=== PATIENT | female | born 1980 | race Caucasian/White ===

== ENCOUNTER 2016-11-02 06:01 | Observation (INO) | payer BC ==
[2016-11-01 11:15] LABS: HEMATOCRIT 37.1 % (36.0-48.0); HEMOGLOBIN 12.7 g/dL (12.0-16.0)
--- NOTE | ~2016-11-02 | OP ---
Record Of Operation [facility] [address] [place]. [address] NAME: SAI BOSE : 80 STATUS : DIS Yinka PAT#: [id number] AGE: 35 ADM/REG DATE : 11/02/16 MR#: [id number] REPORT SERV DATE: 11/03/16 DICTATED BY: SG BOBBY DATE: 11/03/16 REPORT STATUS : Draft TRANSCRIBED BY: TRAE DATE: 11/03/16 DATE OF PROCEDURE: 11/02/2016 PREOPERATIVE DIAGNOSIS: History of breast cancer, acquired absence of left breast. POSTOPERATIVE DIAGNOSE: History of breast cancer, acquired absence of left breast. PROCEDURE: Left breast reconstruction with [employer] tissue dining room attendant cafeteria, 650 mL filled to 200 mL, and placement of acellular dermal matrix 10 x 21 cm. RESIDENT: Erwin Schmidt. ANESTHESIA: General endotracheal. COMPLICATIONS: None. INDICATION FOR THE PROCEDURE: The patient is a 35-year-old female with left breast cancer, who has undergone a left mastectomy. She is appropriate for reconstruction of left the breast with tissue dining room attendant cafeteria and AlloDerm. DESCRIPTION OF PROCEDURE: The patient on the operating table having undergone a left mastectomy, evaluation reveals a left mastectomy deep wound through a circumvertical incision. The flaps are good, thickness, and viability. The wound was irrigated with saline. The pectoralis major muscle was elevated from the chest wall and released from its inferior attachments. A 10 x 21 cm AlloDerm contoured was placed into the wound and sutured to the chest wall to recreate the inframammary and lateral breast fold. 650 mL tissue dining room attendant cafeteria was placed, filled to 200 mL. The AlloDerm was sutured to the pectoralis muscle to provide complete coverage. Two drains were placed. The deep fascia was sutured down to the AlloDerm and the skin was closed in layers with Monocryl sutures. The drains were placed to bulb suction. The patient tolerated the procedure well. She was extubated and transferred to the recovery area. She will remain in the hospital for 23-hour observation. REJI/TRAE Sg Bobby M.D. / [id number] CC: Dillon Feliciano M.D. NO PCP
--- NOTE | ~2016-11-02 | OP ---
Record Of Operation [facility] [address] [place]. [address] NAME: SAI BOSE : 80 STATUS : ADM Yinka PAT#: [id number] AGE: 35 ADM/REG DATE : 11/02/16 MR#: [id number] REPORT SERV DATE: 11/03/16 DICTATED BY: DILLON FELICIANO DATE: 11/03/16 REPORT STATUS : Draft TRANSCRIBED BY: MODFabian DATE: 11/03/16 DATE OF PROCEDURE: 11/02/2016 PREOPERATIVE DIAGNOSIS: Left breast cancer. POSTOP DIAGNOSIS: Left breast cancer. OPERATION PERFORMED: 1. Left total mastectomy. 2. Sublette node biopsy. ANESTHESIA: General. ESTIMATED BLOOD LOSS: Less than 100 mL. IV FLUIDS: Adequate. INDICATION FOR PROCEDURE: Ms. Bose is a 35-year-old white female, who has developed multifocal left breast cancer. After full discussion of options, she has opted for a left mastectomy and sentinel node biopsy with reconstruction. SPECIMENS: 1. Left breast suture placed and axillary tail for orientation. 2. Sublette node x2, target counts 2834 and 1358 respectively. DESCRIPTION OF OPERATION: After appropriate sedation, the patient was prepped and draped in proper sterile fashion. An incision was made around the nipple-areolar complex and then brought inferiorly in a lollipop shape. Subcutaneous flaps were developed circumferentially, superiorly to the level of the clavicle, medial to the level of sternum, inferiorly to the inframammary fold, and laterally to the level of latissimus. The breast was then taken off the chest wall and taken down to the axillary tail. It was then transected at the axillary tail and sutures were placed in the axillary tail for orientation. A Neoprobe was placed into the left axilla. A hot node was encountered and it was dissected out using a Harmonic scalpel. It was placed in the back table and it was noted to have a target count of 2834. Probe was then placed back in the left axilla. A second node was encountered and it was dissected out using a Harmonic scalpel and it was noted to have a target count of 1358. We then palpated the left axilla. There were no clinically positive nodes. We placed the probe back in the left axilla and there was no significant uptake. At this point, we evaluated our flaps, which were uniform and viable. The remainder of the case was turned over to Dr. Malcolm Bobby for completion of the reconstruction. JOSIAH/TRAE Record Of [place] [address] [place]. [address] NAME: SAI BOSE : 80 STATUS : ADM Yinka PAT#: [id number] AGE: 35 ADM/REG DATE : 11/02/16 MR#: [id number] REPORT SERV DATE: 11/03/16 DICTATED BY: DILLON FELICIANO DATE: 11/03/16 REPORT STATUS : Draft TRANSCRIBED BY: TRAE DATE: 11/03/16 Dillon Feliciano M.D. / [id number] CC: Dillon Feliciano M.D. NO PCP
[~2016-11-02 06:01] MED LIST: IBU-200200 MG PO; NEUR100 PO; NORCO1 TA2 PO; ULTRAM50 PO
[2016-11-03] MEDS ORDERED: K500 PO (14:36)
[2016-11-03] MEDS ORDERED: PCET PO (14:42)
== END 2016-11-03 15:40 | disposition home or self-care (01) ==
LOC: SDC 06:01 → 5SO 14:06
PROVIDERS: Specialist; Surgery Plastic and Reconstructive Surgery
PROC: 0HHU0NZ Insertion of Tissue Expander into Left Breast, Open Approach (ICD-10-PCS; 2016-11-02)
PROC: 0HUU0KZ Supplement Left Breast with Nonautologous Tissue Substitute, Open Approach (ICD-10-PCS; 2016-11-02)
PROC: 0HTU0ZZ Resection of Left Breast, Open Approach (ICD-10-PCS; principal; 2016-11-02 07:15)
PROC: 07B60ZX Excision of Left Axillary Lymphatic, Open Approach, Diagnostic (ICD-10-PCS; 2016-11-02 07:15)
DX: C50.612 Malignant neoplasm of axillary tail of left female breast (principal); J45.909 Unspecified asthma, uncomplicated; G43.909 Migraine, unspecified, not intractable, without status migrainosus; Z88.1 Allergy status to other antibiotic agents; Z91.040 Latex allergy status
CPT/HCPCS: 78195; 85014; 85018; 88305; 88307; 88342; 96374; 96375; 96376; A9270-GY; A9541; C1769; C1789; G0378; J0690; J1170; J1885; J2250; J2370; J2405; J2550; J2710; J3010; Q4116

== ENCOUNTER 2016-11-15 21:27 | Emergency (ER) | payer BC ==
[2016-11-15 17:51] LABS: BASOPHILS 0.5 %; BASOPHILS ABSOLUTE 0.03 10/3/uL (0.0-0.16); EOSINOPHILS 4.8 %; EOSINOPHILS ABSOLUTE 0.29 10/3/uL (0.0-0.53); HEMATOCRIT 35.8 % (36.0-48.0); HEMOGLOBIN 12.2 g/dL (12.0-16.0); IMMATURE GRANULOCYTES 0.5 %; IMMATURE GRANULOCYTES ABSOLUTE 0.03 10/3/uL (0.0-0.11); LYMPHOCYTES 25.4 %; LYMPHOCYTES ABSOLUTE 1.52 10/3/uL (0.67-4.30); MEAN CORPUS HGB CONC 34.1 g/dL (32.0-36.0); MEAN CORPUSCULAR HEMOGLOB 32.2 pg (26.0-34.0); MEAN CORPUSCULAR VOLUME 94.5 fL (80-100); MEAN PLATELET VOLUME 10.1 fL (9.2-13.0); MONOCYTES 7.2 %; MONOCYTES ABSOLUTE 0.43 10/3/uL (0.21-1.20); NEUTROPHILS 61.6 %; NEUTROPHILS ABSOLUTE 3.69 10/3/uL (2.02-8.40); PLATELET COUNT 260 10/3/uL (150-400); RBC DISTRIBUTION WIDTH 12.6 % (12.0-16.0); RED CELL COUNT 3.79 10/6/uL (4.0-5.6)
[2016-11-15 17:52] LABS: MANUAL DIFF NO %
[2016-11-15 17:58] LABS: INTERNATIONAL NORMAL RATI 1.1 UNITS (-); PARTIAL THROMBO TIME 25.5 SEC (22.5-37.2); PROTIME (NOT ORD) 13.6 SEC (12.0-14.5)
[2016-11-15 18:08] LABS: BUN (BLOOD UREA NITROGEN) 13 MG/DL (6-23); CALCIUM, SERUM 8.8 MG/DL (8.5-10.4); CHEST PAIN PROFILE TAT 0 Hrs 21 Mins; CHLORIDE, SERUM 106 MMOL/L (96-112); CO2 (CARBON DIOXIDE) 28 MMOL/L (24-34); CREATININE 0.72 MG/DL (0.55-1.02); GFR AFRICAN AMERICAN 126 ML/MIN (>=60); GFR NON AFRICAN AMERICAN 109 ML/MIN (>=60); GLUCOSE, SERUM 100 MG/DL (60-99); POTASSIUM, SERUM 4.1 MMOL/L (3.5-5.3); SODIUM, SERUM 141 MMOL/L (135-148); TROPONIN I <0.02 NG/ML (<0.05)
[2016-11-15 21:04] LABS: ASCORBIC ACID (UR NOT ORDER) NEG (NEG); BILIRUBIN, URINE NEGATIVE (NEG); ER URINALYSIS TAT 0 Hrs 10 Mins; KETONE, URINE NEGATIVE (NEG); LEUKOCYTE ESTERASE(NOT OR NEG (NEG); NITRITE (URINE) NEG (NEG); WBC (NOT ORDERED) (RFLEX) < 1 (0-5)
[~2016-11-15 21:27] MED LIST changes: +K500 PO; +PCET PO
== END 2016-11-16 00:17 | disposition home or self-care (01) ==
LOC: ER 21:27
PROVIDERS: Emergency Medicine
DX: R07.89 Other chest pain (principal); Z91.040 Latex allergy status; Z88.1 Allergy status to other antibiotic agents; Z79.899 Other long term (current) drug therapy
CPT/HCPCS: 71020; 71275; 80048; 81001; 83735; 83880; 84484; 85025; 85610; 85730; 93005; 96374; 99285; A9270-GY; J2405; Q9967

== ENCOUNTER 2016-11-21 07:42 | Day surgery (SDC) | payer BC, OTHER ==
--- NOTE | ~2016-11-21 | OP ---
Record Of Operation [facility] [address] [place]. [address] NAME: SAI BOSE : 80 STATUS : REG [facility] PAT#: [id number] AGE: 35 ADM/REG DATE : 11/21/16 MR#: [id number] REPORT SERV DATE: 11/21/16 DICTATED BY: DILLON FELICIANO DATE: 11/21/16 REPORT STATUS : Draft TRANSCRIBED BY: MODL DATE: 11/21/16 DATE OF PROCEDURE: 11/21/2016 PREOPERATIVE DIAGNOSIS: Left breast cancer. POSTOPERATIVE DIAGNOSIS: Left breast cancer. OPERATION PERFORMED: Right internal jugular Port-A-Cath placement under ultrasound and fluoroscopic guidance. SURGEON: Dillon Feliciano M.D. ANESTHESIA: General. ESTIMATED BLOOD LOSS: Less than 20 mL. IV FLUIDS: Adequate. INDICATION FOR PROCEDURE: Ms Bose is a very pleasant 35-year-old white female, who recently underwent a mastectomy. She has been offered chemotherapy for risk reduction. She is brought to the operating room today for Port-A-Cath placement for IV access. DESCRIPTION OF OPERATION: After appropriate sedation, the patient was prepped and draped in proper sterile fashion. Ultrasound probe was placed over the right neck. She had a patent and pliable right internal jugular vein. Right neck and right chest were infiltrated with local anesthesia. The right internal jugular vein was cannulated using a 14-gauge needle under ultrasound guidance. A guidewire was fed under fluoroscopic guidance just above the right heart. A transverse incision was made over the right chest wall. Subcutaneous tissues were incised down to pectoralis fascia. Pocket was bluntly dissected. Introducer sheath was placed over the guidewire. The catheter was then fed through the introducer sheath with the tip being just above the right heart. The catheter was tunneled subcutaneously to the port pocket and secured to the port. Port was secured to the chest wall using 3-0 Vicryl suture. The port was flushed and aspirated, flushed and aspirated easily. The skin was closed using interrupted 3-0 Vicryl suture. Steri-Strips and dressings were then placed. The patient was taken to the recovery room in satisfactory condition. Chest x-ray was obtained. JOSIAH/TRAE Dillon Feliciano M.D. / [id number] Record Of [place] [address] [place]. [address] NAME: SAI BOSE : 80 STATUS : REG [facility] PAT#: [id number] AGE: 35 ADM/REG DATE : 11/21/16 MR#: [id number] REPORT SERV DATE: 11/21/16 DICTATED BY: DILLON FELICIANO DATE: 11/21/16 REPORT STATUS : Draft TRANSCRIBED BY: MODL DATE: 11/21/16 CC: Dillon Feliciano M.D.
== END 2016-11-21 17:19 | disposition home or self-care (01) ==
LOC: SDC 07:42
PROVIDERS: Specialist
PROC: 0JHD0XZ Insertion of Tunneled Vascular Access Device into Right Upper Arm Subcutaneous Tissue and Fascia, Open Approach (ICD-10-PCS; principal; 2016-11-21 09:30)
DX: C50.912 Malignant neoplasm of unspecified site of left female breast (principal); J45.909 Unspecified asthma, uncomplicated; Z91.040 Latex allergy status; Z88.8 Allergy status to other drugs, medicaments and biological substances; Z90.710 Acquired absence of both cervix and uterus; Z90.12 Acquired absence of left breast and nipple; G43.909 Migraine, unspecified, not intractable, without status migrainosus; Z90.49 Acquired absence of other specified parts of digestive tract; D64.9 Anemia, unspecified
CPT/HCPCS: 71010; 77001; A9270-GY; C1788; J0690; J2250; J3010

== ENCOUNTER 2016-12-20 02:14 | Emergency (ER) | payer BC ==
[2016-12-20 02:36] LABS: BASOPHILS 2.4 %; BASOPHILS ABSOLUTE 0.06 10/3/uL (0.0-0.16); EOSINOPHILS 0.4 %; EOSINOPHILS ABSOLUTE 0.01 10/3/uL (0.0-0.53); IMMATURE GRANULOCYTES 0.8 %; LYMPHOCYTES 30.9 %; LYMPHOCYTES ABSOLUTE 0.76 10/3/uL (0.67-4.30); MEAN CORPUSCULAR HEMOGLOB 31.8 pg (26.0-34.0); MEAN CORPUSCULAR VOLUME 93.6 fL (80-100); MEAN PLATELET VOLUME 10.6 fL (9.2-13.0); MONOCYTES 20.3 %; NEUTROPHILS 45.2 %; NEUTROPHILS ABSOLUTE 1.11 10/3/uL (2.02-8.40); RBC DISTRIBUTION WIDTH 12.1 % (12.0-16.0); RED CELL COUNT 3.14 10/6/uL (4.0-5.6)
[2016-12-20 02:37] LABS: HEMATOCRIT 29.4 % (36.0-48.0); IMMATURE GRANULOCYTES ABSOLUTE 0.02 10/3/uL (0.0-0.11); MANUAL DIFF NO %; PLATELET COUNT 144 10/3/uL (150-400); WHITE BLOOD CELLS 2.5 10/3/uL (4.5-10.5)
[2016-12-20 02:46] LABS: PARTIAL THROMBO TIME 25.4 SEC (22.5-37.2); PROTIME (NOT ORD) 13.2 SEC (12.0-14.5)
[2016-12-20 02:56] LABS: BAND NEUTROPHILS 2 %; BASOPHILS 2 %; BASOPHILS ABSOLUTE (CALC) 0.05 10/3/uL (0.0-0.16); BUN (BLOOD UREA NITROGEN) 8 MG/DL (6-23); CALCIUM, SERUM 8.6 MG/DL (8.5-10.4); CHEST PAIN PROFILE TAT 0 Hrs 25 Mins; CHLORIDE, SERUM 104 MMOL/L (96-112); CO2 (CARBON DIOXIDE) 28 MMOL/L (24-34); CREATININE 0.72 MG/DL (0.55-1.02); ER DIFF TAT 0 Hrs 25 Mins; GFR AFRICAN AMERICAN 125 ML/MIN (>=60); GFR NON AFRICAN AMERICAN 108 ML/MIN (>=60); GLUCOSE, SERUM 99 MG/DL (60-99); LYMPHOCYTES 36 %; MONOCYTES 14 %; MONOCYTES ABSOLUTE (CALC) 0.35 10/3/uL (0.21-1.20); PLATELET ESTIMATE SLT DEC (ADEQUATE); POTASSIUM, SERUM 3.6 MMOL/L (3.5-5.3); RBC MORPHOLOGY NORM (NORMAL); SEGMENTED NEUTROPHIL (0) 46 %; SODIUM, SERUM 139 MMOL/L (135-148); TOTAL NUCLEATED CELLS 100; TROPONIN I <0.02 NG/ML (<0.05)
== END 2016-12-20 04:36 | disposition home or self-care (01) ==
LOC: ER 02:14
PROVIDERS: Specialist
DX: S20.212A Contusion of left front wall of thorax, initial encounter (principal); R55 Syncope and collapse; C50.912 Malignant neoplasm of unspecified site of left female breast; Z88.1 Allergy status to other antibiotic agents; Z91.040 Latex allergy status; Z79.891 Long term (current) use of opiate analgesic; W19.XXXA Unspecified fall, initial encounter
CPT/HCPCS: 71010; 80048; 83735; 84484; 85025; 85610; 85730; 93005; 96374; 96375; 96376; 99284; A9270-GY; J2405; J3010

== ENCOUNTER 2017-03-14 22:48 | Emergency (ER) | payer BC ==
[2017-03-14 23:54] LABS: EOSINOPHILS 1.6 %; EOSINOPHILS ABSOLUTE 0.34 10/3/uL (0.0-0.53); HEMOGLOBIN 11.4 g/dL (12.0-16.0); LYMPHOCYTES 13.7 %; LYMPHOCYTES ABSOLUTE 2.99 10/3/uL (0.67-4.30); MEAN CORPUS HGB CONC 32.4 g/dL (32.0-36.0); MEAN CORPUSCULAR HEMOGLOB 32.1 pg (26.0-34.0); MEAN PLATELET VOLUME 10.9 fL (9.2-13.0); MONOCYTES 9.8 %; MONOCYTES ABSOLUTE 2.15 10/3/uL (0.21-1.20); RBC DISTRIBUTION WIDTH 14.3 % (12.0-16.0); RED CELL COUNT 3.55 10/6/uL (4.0-5.6)
[2017-03-14 23:56] LABS: ER CBC TAT 0 Hrs 15 Mins; HEMATOCRIT 35.2 % (36.0-48.0); MEAN CORPUSCULAR VOLUME 99.2 fL (80-100); PLATELET COUNT 209 10/3/uL (150-400); WHITE BLOOD CELLS 21.9 10/3/uL (4.5-10.5)
[2017-03-14 23:57] LABS: MANUAL DIFF NO %
[2017-03-15 00:04] LABS: A/G RATIO 1.1 (0.7-1.9); ALBUMIN 3.8 G/DL (3.5-5.0); ALKALINE PHOSPHATASE 314 U/L (45-117); BUN (BLOOD UREA NITROGEN) 7 MG/DL (6-23); CALCIUM, SERUM 9.3 MG/DL (8.5-10.4); CHLORIDE, SERUM 106 MMOL/L (96-112); CO2 (CARBON DIOXIDE) 28 MMOL/L (24-34); CREATININE 0.85 MG/DL (0.55-1.02); GFR AFRICAN AMERICAN 102 ML/MIN (>=60); GFR NON AFRICAN AMERICAN 88 ML/MIN (>=60); GLOBULIN 3.6 G/DL (2.5-4.1); GLUCOSE, SERUM 88 MG/DL (60-99); SGOT(AST) 86 U/L (5-40); SGPT(ALT) 132 U/L (5-65); SODIUM, SERUM 140 MMOL/L (135-148); TOTAL BILIRUBIN 0.3 MG/DL (0-1.2); TOTAL PROTEIN 7.4 G/DL (6.0-8.5)
[2017-03-15 00:06] LABS: POTASSIUM, SERUM 4.4 MMOL/L (3.5-5.3)
[2017-03-15 00:23] LABS: BAND NEUTROPHILS 2 %; EOSINOPHILS 1 %; EOSINOPHILS ABSOLUTE (CALC) 0.22 10/3/uL (0.0-0.53); ER DIFF TAT 0 Hrs 42 Mins; IMMATURE GRANS ABSOLUTE (CALC) 0.88 10/3/uL (0.0-0.11); LYMPHOCYTES 25 %; LYMPHOCYTES ABSOLUTE (CALC) 5.48 10/3/uL (0.67-4.30); METAMYELOCYTES 3 %; MONOCYTES 18 %; MONOCYTES ABSOLUTE (CALC) 3.94 10/3/uL (0.21-1.20); MYELOCYTES 1 %; NEUTROPHILS ABSOLUTE (CALC) 11.39 10/3/uL (2.02-8.40); SEGMENTED NEUTROPHIL (0) 50 %; TOTAL NUCLEATED CELLS 100
[2017-03-15 00:24] LABS: PLATELET ESTIMATE ADQ (ADEQUATE)
[2017-03-15 00:25] LABS: TOXIC GRANULATION 1+
[2017-03-15 01:56] LABS: INFLUENZA A SCREEN NEGATIVE (NEGATIVE); INFLUENZA B SCREEN NEGATIVE (NEGATIVE)
[2017-03-15 03:48] LABS: ASCORBIC ACID (UR NOT ORDER) NEG (NEG); BILIRUBIN, URINE NEGATIVE (NEG); ER URINALYSIS TAT 0 Hrs 00 Mins; KETONE, URINE NEGATIVE (NEG); LEUKOCYTE ESTERASE(NOT OR NEG (NEG); NITRITE (URINE) NEG (NEG); WBC (NOT ORDERED) (RFLEX) 3 (0-5)
[2017-03-15] MEDS ORDERED: X25 PO (07:44)
[2017-03-15] MEDS ORDERED: OXYCOD PO (07:44)
[2017-03-15] MEDS ORDERED: MOBIC7.5 PO (07:45)
[2017-03-15] MEDS ORDERED: CHEMOTHERAPY IV (07:45)
[2017-03-15] MEDS ORDERED: ADVIL PO (07:45)
== END 2017-03-15 08:58 | disposition home or self-care (01) ==
LOC: ER 22:48
PROVIDERS: Emergency Medicine
DX: J06.9 Acute upper respiratory infection, unspecified (principal); D72.829 Elevated white blood cell count, unspecified; C50.919 Malignant neoplasm of unspecified site of unspecified female breast; Z88.1 Allergy status to other antibiotic agents; Z91.040 Latex allergy status; Z79.899 Other long term (current) drug therapy
CPT/HCPCS: 71020; 71275; 80053; 81001; 83690; 85025; 87040; 87804; 93005; 96374; 96375; 96376; 99285; J1170; J2550; Q9967